=== PATIENT | male | born 1990 | race African-American/Black ===

== ENCOUNTER 2023-03-29 13:47 | Emergency (ER) | payer OTHER ==
[~2023-03-29] VITALS: Ht 175.3 cm; Wt 104.7 kg
[2023-03-29 14:18] LABS: BASO # 0.1 10^3/uL (0.0-0.2); BASO % 0.7 % (0.0-1.0); EOS # 0.3 10^3/uL (0.0-0.5); HEMATOCRIT 47.4 % (42.0-52.0); LYMPH # 3.1 10^3/uL (1.5-5.0); LYMPH % 36.1 % (24.0-44.0); MEAN CORPUSCULAR HEMOGLOBIN 21.5 pg (27.0-33.0); MEAN CORPUSCULAR HGB CONC 31.6 g/dl (32.0-36.5); MEAN CORPUSCULAR VOLUME 67.8 fl (80.0-96.0); MONO # 0.6 10^3/uL (0.0-0.8); MONO % 7.1 % (2.0-8.0); NEUTROPHILS # 4.5 10^3/uL (1.5-8.5); PLATELET COUNT, AUTOMATED 392 10^3/uL (150-450); RED BLOOD COUNT 6.99 10^6/uL (4.30-6.10); WHITE BLOOD COUNT 8.5 10^3/uL (4.0-10.0)
[2023-03-29] MEDS ORDERED: cloNIDine 0.1MG TABLET PO ONE (14:20)
[2023-03-29] MEDS ORDERED: ASPIRIN 81MG CHEW TABLET PO ONE (14:20)
[2023-03-29] MEDS ORDERED: NITROGLYCERIN 0.4MG SUBL TABLET SL PRN (14:20)
[2023-03-29 14:30] LABS: PROTHROMBIN TIME 13.9 SECONDS (12.5-14.5)
[2023-03-29 14:32] VITALS: BP 167/96
[2023-03-29 14:40] LABS: LIPASE 34 U/L (12-53)
[2023-03-29] MEDS ORDERED: TELM1TAB35 PO (14:40)
[2023-03-29 14:42] LABS: ALBUMIN 4.2 G/DL (3.2-5.2); ALKALINE PHOSPHATASE 117 U/L (46-116); ALT/SGPT 49 U/L (7.0-40); AST/SGOT 41 U/L (<34); BILIRUBIN,DIRECT < 0.1 MG/DL (<0.4); BILIRUBIN,TOTAL 0.4 MG/DL (0.3-1.2); BLOOD UREA NITROGEN 16 MG/DL (9-23); CALCIUM LEVEL 9.9 MG/DL (8.5-10.1); CARBON DIOXIDE LEVEL 28 MMOL/L (20-31); CHLORIDE LEVEL 100 MMOL/L (98-107); CK-MB VALUE MASS 1.5 NG/ML (<3.6); CREATININE FOR GFR 1.17 MG/DL (0.70-1.30); GLOMERULAR FILTRATION RATE > 60.0 (>60); GLUCOSE, FASTING 111 MG/DL (60-100); POTASSIUM SERUM 3.8 MMOL/L (3.5-5.1); SODIUM LEVEL 136 MMOL/L (136-145); TOTAL PROTEIN 7.8 G/DL (5.7-8.2)
[2023-03-29] MEDS ORDERED: CLONI1TA PO (14:43)
[2023-03-29] MEDS ORDERED: CHLO125TA PO (14:43)
[2023-03-29] MEDS ORDERED: AMLO25TA PO (14:43)
[2023-03-29 14:44] LABS: FREE T4 1.02 NG/DL (0.89-1.76); THYROID STIMULATING HORMONE 1.384 uIU/ML (0.55-4.78)
[2023-03-29 14:46] LABS: CPK CREATINE PHOSPHOKINASE 743 U/L (46-171)
[2023-03-29 15:29] LABS: CK-MB VALUE MASS 2.1 NG/ML (<3.6)
[2023-03-29 15:30] LABS: D-DIMER QUANT < 0.27 ug/mL (<0.5)
[2023-03-29 15:31] LABS: MB/CK RELATIVE INDEX 0.3 (< OR =4)
[2023-03-29 15:45] VITALS: BP 139/82; TEMP 98.3; O2SAT 99
== END 2023-03-29 15:59 | disposition home or self-care (01) ==
LOC: M ED 13:47
DX: I10 Essential (primary) hypertension (principal); R07.9 Chest pain, unspecified

== ENCOUNTER 2023-08-27 05:17 | Emergency (ER) | payer OTHER ==
[~2023-08-27] VITALS: Ht 175.3 cm; Wt 105.8 kg
[~2023-08-27 05:17] MED LIST: AMLO25TA PO; CHLO125TA PO; CLONI1TA PO; TELM1TAB35 PO
[2023-08-27 06:51] LABS: BASO % 0.7 % (0.0-1.0); EOS # 0.4 10^3/uL (0.0-0.5); EOS % 6.3 % (0.0-3.0); HEMATOCRIT 45.8 % (42.0-52.0); HEMOGLOBIN 14.2 g/dl (13.5-17.5); LYMPH # 2.4 10^3/uL (1.5-5.0); LYMPH % 38.9 % (24.0-44.0); MEAN CORPUSCULAR HEMOGLOBIN 21.3 pg (27.0-33.0); MEAN CORPUSCULAR VOLUME 68.7 fl (80.0-96.0); MONO # 0.5 10^3/uL (0.0-0.8); MONO % 7.4 % (2.0-8.0); NEUTROPHILS # 2.8 10^3/uL (1.5-8.5); NEUTROPHILS % 46.4 % (36.0-66.0); PLATELET COUNT, AUTOMATED 354 10^3/uL (150-450); RED BLOOD COUNT 6.67 10^6/uL (4.30-6.10); WHITE BLOOD COUNT 6.1 10^3/uL (4.0-10.0)
[2023-08-27 07:11] LABS: BLOOD UREA NITROGEN 11 MG/DL (9-23); CALCIUM LEVEL 9.3 MG/DL (8.5-10.1); CARBON DIOXIDE LEVEL 31 MMOL/L (20-31); CHLORIDE LEVEL 103 MMOL/L (98-107); CK-MB VALUE MASS 1.7 NG/ML (<3.6); CREATININE FOR GFR 1.29 MG/DL (0.70-1.30); GLOMERULAR FILTRATION RATE > 60.0 (>60); GLUCOSE, FASTING 106 MG/DL (60-100); POTASSIUM SERUM 4.3 MMOL/L (3.5-5.1); SODIUM LEVEL 138 MMOL/L (136-145)
[2023-08-27 07:21] LABS: CPK CREATINE PHOSPHOKINASE 484 U/L (46-171); MB/CK RELATIVE INDEX 0.35 (< OR =4)
[2023-08-27] MEDS ORDERED: LABE100T40 PO (07:36)
[2023-08-27] MEDS ORDERED: LABE100T6 PO (07:36)
[2023-08-27 08:01] VITALS: BP 163/123
[2023-08-27] MEDS: amLODIPine 5 MG TAB PO ONE (08:01)
[2023-08-27] MEDS: LABETALOL 200 MG TAB PO ONE (08:01)
[2023-08-27 08:05] LABS: IRON (FE) 34 UG/DL (65-175); PERCENT SATURATION 10.1 % (19.7-50.0); TOTAL IRON BINDING CAPACITY 335 UG/DL (250-425)
[2023-08-27 08:08] LABS: FERRITIN 97.5 NG/ML (10.5-307.3); VITAMIN B12 LEVEL 580 PG/ML (211-911)
[2023-08-27 08:12] LABS: CK-MB VALUE MASS 1.2 NG/ML (<3.6); MB/CK RELATIVE INDEX 0.26 (< OR =4)
[2023-08-27] MEDS: CHLORTHALIDONE 25 MG TAB PO ONE (08:17)
[2023-08-27] MEDS: TELMISARTAN 20 MG TAB PO ONE (08:17)
[2023-08-27] MEDS ORDERED: FERR325T3 PO (10:19)
[2023-08-27 11:11] VITALS: BP 138/72; TEMP 97.2; O2SAT 99
[2023-08-27] MEDS ORDERED: TELMISARTAN 20 MG TAB PO SCH (21:00)
== END 2023-08-27 11:13 | disposition home or self-care (01) ==
LOC: M ED 05:17
DX: I10 Essential (primary) hypertension (principal); E61.1 Iron deficiency; Z79.899 Other long term (current) drug therapy

== ENCOUNTER 2024-06-24 19:40 | Emergency (ER) | payer OTHER ==
[~2024-06-24] VITALS: Ht 175.3 cm; Wt 107.1 kg
[~2024-06-24 19:40] MED LIST changes: +FERR325T3 PO; +LABE100T40 PO; +LABE100T6 PO
[2024-06-24 19:43] VITALS: TEMP 98; O2SAT 99
[2024-06-24 21:37] VITALS: BP 188/118
[2024-06-24 21:40] LABS: BASO # 0.1 10^3/uL (0.0-0.2); BASO % 0.8 % (0.0-1.0); EOS # 0.2 10^3/uL (0.0-0.5); EOS % 3.6 % (0.0-3.0); HEMATOCRIT 45.4 % (42.0-52.0); HEMOGLOBIN 14.1 g/dl (13.5-17.5); LYMPH % 45.7 % (24.0-44.0); MEAN CORPUSCULAR HEMOGLOBIN 21.1 pg (27.0-33.0); MEAN CORPUSCULAR HGB CONC 31.1 g/dl (32.0-36.5); MEAN CORPUSCULAR VOLUME 68.1 fl (80.0-96.0); MONO # 0.5 10^3/uL (0.0-0.8); NEUTROPHILS # 2.8 10^3/uL (1.5-8.5); NEUTROPHILS % 42.6 % (36.0-66.0); PLATELET COUNT, AUTOMATED 334 10^3/uL (150-450); RED BLOOD COUNT 6.67 10^6/uL (4.30-6.10); WHITE BLOOD COUNT 6.6 10^3/uL (4.0-10.0)
[2024-06-24 22:14] LABS: ALBUMIN 3.8 G/DL (3.2-5.2); ALKALINE PHOSPHATASE 107 U/L (40-129); ALT/SGPT 59 U/L (7.0-40); AST/SGOT 48 U/L (<34); BILIRUBIN,DIRECT < 0.1 MG/DL (<0.4); BILIRUBIN,TOTAL 0.3 MG/DL (0.3-1.2); BLOOD UREA NITROGEN 14 MG/DL (9-23); CALCIUM LEVEL 8.8 MG/DL (8.5-10.1); CARBON DIOXIDE LEVEL 28 MMOL/L (20-31); CHLORIDE LEVEL 102 MMOL/L (98-107); CK-MB VALUE MASS 1.4 NG/ML (<3.6); CREATININE FOR GFR 1.18 MG/DL (0.70-1.30); GLOMERULAR FILTRATION RATE > 60.0 (>60); GLUCOSE, FASTING 110 MG/DL (60-100); POTASSIUM SERUM 3.9 MMOL/L (3.5-5.1); SODIUM LEVEL 139 MMOL/L (136-145); TOTAL PROTEIN 7.4 G/DL (5.7-8.2)
[2024-06-24 22:17] LABS: CPK CREATINE PHOSPHOKINASE 703 U/L (46-171); MB/CK RELATIVE INDEX 0.19 (< OR =4)
[2024-06-24] MEDS ORDERED: ISOVUE-370 76% 100ML VIAL As Ordered ONE (22:27)
[2024-06-24] MEDS: LABETALOL 100MG/20ML VIAL IV STA (22:32)
== END 2024-06-25 00:52 | disposition home or self-care (01) ==
LOC: M ED 19:40
DX: I16.0 Hypertensive urgency (principal); R00.2 Palpitations; R20.2 Paresthesia of skin; I10 Essential (primary) hypertension; K44.9 Diaphragmatic hernia without obstruction or gangrene; Z79.899 Other long term (current) drug therapy
CPT/HCPCS: 70450; 71275; 72125; 80053; 82248; 82550; 82553; 84484; 85025; 93005; 96374; 99284; J1920; Q9967